=== PATIENT | female | born 1970 ===

== ENCOUNTER 2018-03-25 06:38 | Day surgery (SDC) | payer OTHER ==
[~2018-03-25 06:38] MED LIST: SYNTHROID112 MCG PO
[2018-03-26] MEDS ORDERED: RECTICARE30 GM TOP (08:09)
[2018-03-26] MEDS ORDERED: INTESTINEX680 M1 PO (08:09)
[2018-03-26] MEDS ORDERED: OXYC1TAB9 PO (08:09)
[2018-03-26] MEDS ORDERED: POLY119PG PO (08:09)
[2018-03-26] MEDS ORDERED: FLAGYL500MG PO (08:09)
== END 2018-03-26 08:25 | disposition home or self-care (01) ==
LOC: CIR.AMB 06:38 → SURG 17:58 → O/R 17:58 → SURG 22:42 → O/R 22:42 → CIR.AMB 03-26 08:25 → O/R 03-26 13:22 → SURG 03-26 13:22
DX: N82.3 Fistula of vagina to large intestine (principal)

== ENCOUNTER 2018-08-17 08:15 | Day surgery (SDC) | payer OTHER ==
[~2018-08-17 08:15] MED LIST changes: +FLAGYL500MG PO; +INTESTINEX680 M1 PO; +OXYC1TAB9 PO; +POLY119PG PO; +RECTICARE30 GM TOP
== END 2018-08-17 13:30 | disposition home or self-care (01) ==
LOC: AMB-ENDOS 08:15
DX: D12.8 Benign neoplasm of rectum (principal)

== ENCOUNTER 2021-09-05 06:16 | Day surgery (SDC) | payer OTHER ==
[2021-09-05] MEDS ORDERED: RECTICARE30 GM TOP (12:26)
[2021-09-05] MEDS ORDERED: PERCOCET 5-3251 EACH PO (12:26)
== END 2021-09-05 17:40 | disposition home or self-care (01) ==
LOC: CIR.AMB 06:16
PROVIDERS: ATTEND Surgery
DX: K60.3 Anal fistula (principal); K64.1 Second degree hemorrhoids; Z20.822 Contact with and (suspected) exposure to COVID-19